=== PATIENT | female | born 1990 | race Two or more races ===

== ENCOUNTER 2018-11-21 17:53 | Emergency (ER) | payer MEDICAID, OTHER ==
[~2018-11-21] VITALS: Ht 165.1 cm; Wt 80.0 kg
[2018-11-21] MEDS ORDERED: IBUPROFEN 600MG TABLET PO ONE (20:00)
[2018-11-21 20:20] VITALS: BP 119/71
== END 2018-11-21 20:21 | disposition home or self-care (01) ==
LOC: ER 18:34
DX: M25.50 Pain in unspecified joint (principal); V49.40XA Driver injured in collision with unspecified motor vehicles in traffic accident, initial encounter; Y93.9 Activity, unspecified; Y92.410 Unspecified street and highway as the place of occurrence of the external cause
CPT/HCPCS: 81025; 99282

== ENCOUNTER 2019-06-08 12:52 | Emergency (ER) | payer SELFPAY ==
[~2019-06-08] VITALS: Ht 162.6 cm; Wt 79.0 kg
[2019-06-08] MEDS ORDERED: IBUPROFEN 600MG TABLET PO STA (16:41)
[2019-06-08] MEDS ORDERED: ACETAMINOPHEN 325MG TABLET PO STA (16:41)
[2019-06-08 17:59] VITALS: BP 129/77
== END 2019-06-08 18:02 | disposition home or self-care (01) ==
LOC: ER 12:52
DX: J10.1 Influenza due to other identified influenza virus with other respiratory manifestations (principal); M79.10 Myalgia, unspecified site; R50.81 Fever presenting with conditions classified elsewhere
CPT/HCPCS: 71045; 87804; 99284